=== PATIENT | female | born 1970 | race African-American/Black ===

== ENCOUNTER 2021-04-16 06:04 | Inpatient (IN) ==
[2021-04-08 12:08] LABS: Basophils % 0.3 % (0.0-0.8); Eosinophils # 0.1 10*3/uL (0.0-0.87); Eosinophils % 1.3 % (0.00-10.9); Hematocrit 42.1 VOL% (35.7-47.0); Hemoglobin 13.7 GM/DL (12.0-16.0); Immature Granulocytes % 0.3 %; Immature Granulocytes Absolute 0.03 #; Lymphocytes # 1.9 10*3/uL (1.4-4.0); Lymphocytes % 20.3 % (21.3-54.2); Mean Corpuscular HGB Conc 32.5 GM/DL (32-36); Mean Corpuscular Volume 82.2 FL (87-102); Mean Platelet Volume 9.9 FL (9.6-12.0); Monocytes % 4.9 % (1.7-12.7); Neutrophils % 72.9 % (38.7-73.9); Platelet Count 252 T/CUMM (130-400); Red Blood Count 5.12 MC/CUMM (3.8-5.5); White Blood Count 9.2 T/CUMM (4-12)
[2021-04-08 12:30] LABS: Alanine Aminotransferase 20 U/L (13-56); Albumin 3.8 G/DL (3.4-5.0); Alkaline Phosphatase 83 U/L (45-117); Aspartate Amino Transferase 14 U/L (0-37); Bilirubin,Total < 0.39 MG/DL (0.20-1.00); Blood Urea Nitrogen 17 MG/DL (7-18); Calcium 9.5 MG/DL (8.5-10.1); Carbon Dioxide 26 MMOL/L (21-32); Estimated Glom Filtration Rate 125 ML/MIN; Glucose 101 MG/DL (74-106); Osmolality,Calculated 282.3 MOS/KG (273-304); Potassium 3.8 MMOL/L (3.5-5.1); Sodium 141 MMOL/L (136-145); Total Protein 7.5 G/DL (6.4-8.2)
[~2021-04-16 06:04] MED LIST: ACETAMINOPHEN 500 MG TABLET PO ONE; DIAZEPAM 5 MG TABLET PO ONE; FAMOTIDINE 20 MG TABLET PO ONE; GABAPENTIN 400 MG CAPSULE PO ONE; LACTATED RINGERS 1,000 ML IV SCH
[2021-04-16] MEDS ORDERED: DEXMEDETOMIDINE 200 MCG/2 ML VIAL ONE (06:26)
[2021-04-16] MEDS ORDERED: LIDOCAINE 2% 5 ML VIAL ONE (06:26)
[2021-04-16] MEDS ORDERED: ROCURONIUM 50 MG/5 ML VIAL IV ONE (06:26)
[2021-04-16] MEDS ORDERED: propofoL 200 MG/20 ML VIAL IV ONE (06:26)
[2021-04-16] MEDS ORDERED: KETAMINE 500 MG/10 ML VIAL ONE (06:27)
[2021-04-16] MEDS ORDERED: fentaNYL 100 MCG/2 ML VIAL ONE (06:27)
[2021-04-16] MEDS ORDERED: cefTRIAXone 1,000 MG in SODIUM CHLORIDE 0.9% 100 ML IV ONE (06:30)
[2021-04-16] MEDS ORDERED: PHENYLEPHRINE 10 MG/1 ML VIAL IV ONE (06:31)
[2021-04-16] MEDS ORDERED: ALBUMIN 5% 25.0 GM/500 ML VIAL IV ONE (06:34)
[2021-04-16] MEDS ORDERED: MANNITOL 12.5 GM/50 ML VIAL IV ONE (06:34)
[2021-04-16] MEDS ORDERED: BUPIVACAINE 0.5% 50 ML VIAL ONE (06:40)
[2021-04-16] MEDS ORDERED: INDOCYANINE GREEN 25 MG VIAL IV ONE (06:41)
[2021-04-16] MEDS ORDERED: DEXAMETHASONE 4 MG/1 ML VIAL ONE (06:42)
[2021-04-16] MEDS ORDERED: DIAZEPAM 5 MG TABLET ONE (06:54)
[2021-04-16] MEDS ORDERED: ACETAMINOPHEN 500 MG TABLET ONE (06:54)
[2021-04-16] MEDS ORDERED: FAMOTIDINE 20 MG TABLET ONE (06:54)
[2021-04-16] MEDS ORDERED: GABAPENTIN 400 MG CAPSULE ONE (06:55)
[2021-04-16] MEDS ORDERED: METOCLOPRAMIDE 10 MG/2 ML VIAL ONE (07:05)
[2021-04-16] MEDS ORDERED: VECURONIUM 10 MG VIAL IV ONE (09:03)
[2021-04-16] MEDS ORDERED: GLYCOPYRROLATE 0.4 MG/2 ML VIAL ONE (09:44)
[2021-04-16] MEDS ORDERED: ONDANSETRON 4 MG/2 ML VIAL ONE (09:44)
[2021-04-16] MEDS ORDERED: NEOSTIGMINE 10 MG/10 ML VIAL ONE (09:44)
[2021-04-16] MEDS ORDERED: SEVOFLURANE 1 UNIT/15 MINUTE INH ONE (10:30)
[2021-04-16 10:38] LABS: Bilirubin,Urine Negative (Negative); Blood, Urine Negative (Negative); Glucose,Urine (UA) Negative (Negative); Ketones,Urine Negative (Negative); Mucus,Urine Occasional /LPF (Occasional); Nitrite,Urine Negative (Negative); Protein,Urine Negative; RBC,Urine 5 /HPF (0-4); Squamous Epithelial Cell,Urine Occasional /HPF (0-10); Urine Appearance CLEAR (Clear); Urine Color Yellow (Yellow); Urine Specific Gravity 1.025 (1.001-1.035)
[2021-04-16] MEDS ORDERED: LACTULOSE 20 GM/30 ML UDCUP PO PRN (10:42)
[2021-04-16] MEDS ORDERED: ONDANSETRON 4 MG/2 ML VIAL IV PRN (10:42)
[2021-04-16] MEDS ORDERED: PROMETHAZINE 25 MG/1 ML VIAL IM PRN (10:42)
[2021-04-16] MEDS ORDERED: ACETAMINOPHEN 325 MG TABLET PO PRN (10:42)
[2021-04-16] MEDS ORDERED: HYDROmorphone 2 MG/1 ML VIAL IV PRN (10:42)
[2021-04-16] MEDS ORDERED: oxyCODONE/ACETAMINOPHEN 5-325 MG TABLET PO PRN (10:42)
[2021-04-16] MEDS ORDERED: GLUCAGON 1 MG VIAL IM PRN ×2 (10:46→17:08)
[2021-04-16] MEDS ORDERED: DEXTROSE 50% 25 GM/50 ML VIAL IV PRN ×2 (10:46→17:08)
[2021-04-16] MEDS ORDERED: SUGAMMADEX 200 MG/2 ML VIAL IV ONE (10:55)
[2021-04-16] MEDS ORDERED: NALOXONE 0.4 MG/ML VIAL ONE (11:13)
[2021-04-16] MEDS ORDERED: ALBUTEROL/IPRATROPIUM 3 ML NEB RESP TX ONE ×2 (12:06→12:10)
[2021-04-16] MEDS: INSULIN REGULAR 100 UNIT/ML SUBCUT SCH ×3 (13:32→21:12)
[2021-04-16] MEDS: ACETAMINOPHEN 325 MG TABLET PO SCH ×2 (13:33→18:13)
[2021-04-16] MEDS ORDERED: SIMETHICONE CHEW 80 MG TABLET PO PRN (14:07)
[2021-04-16 14:09] LABS: Basophils % 0.1 % (0.0-0.8); Hematocrit 37.1 VOL% (35.7-47.0); Hemoglobin 11.5 GM/DL (12.0-16.0); Immature Granulocytes % 0.8 %; Immature Granulocytes Absolute 0.15 #; Lymphocytes # 0.6 10*3/uL (1.4-4.0); Lymphocytes % 3.4 % (21.3-54.2); Mean Corpuscular Volume 85.7 FL (87-102); Monocytes % 0.8 % (1.7-12.7); Neutrophils % 94.9 % (38.7-73.9); Platelet Count 225 T/CUMM (130-400); Red Blood Count 4.33 MC/CUMM (3.8-5.5); Red Cell Distribution Width 15.3 % (9.3-17.3); White Blood Count 17.8 T/CUMM (4-12)
[2021-04-16 14:25] LABS: Calcium 8.5 MG/DL (8.5-10.1); Osmolality,Calculated 280.7 MOS/KG (273-304); Potassium 3.3 MMOL/L (3.5-5.1)
[2021-04-16] MEDS: SODIUM CHLORIDE 0.9% 1,000 ML IV SCH ×2 (14:51→21:21)
[2021-04-16 14:57] LABS: Lymphocytes 1 % (20-55); Segmented Neutrophils 99 % (50-85); Total Cells Counted 100
[2021-04-16 14:59] LABS: Anisocytosis Slight; Microcytosis Slight; Ovalocytes Few
[2021-04-16] MEDS ORDERED: POTASSIUM CHLORIDE 20 MEQ TABLET PO ONE (15:00)
[2021-04-16] MEDS: GABAPENTIN 300 MG CAPSULE PO SCH ×2 (15:52→21:11)
[2021-04-16] MEDS: ALBUTEROL/IPRATROPIUM 3 ML NEB RESP TX SCH (19:53)
[2021-04-16] MEDS: DOCUSATE SODIUM 100 MG CAPSULE PO SCH (21:11)
[2021-04-16] MEDS: AMITRIPTYLINE 10 MG TABLET PO SCH (21:11)
[2021-04-16] MEDS: ALVIMOPAN 12 MG CAPSULE PO SCH (21:11)
[2021-04-16] MEDS: FLUTICASONE 50 MCG NASAL SPRAY 16 GM BOTTLE BOTH NARES SCH (21:18)
[2021-04-17] MEDS: ALBUTEROL/IPRATROPIUM 3 ML NEB RESP TX SCH ×4 (00:52→19:23)
[2021-04-17] MEDS: ACETAMINOPHEN 325 MG TABLET PO SCH ×4 (01:23→18:06)
[2021-04-17] MEDS: SODIUM CHLORIDE 0.9% 1,000 ML IV SCH ×3 (04:05→21:02)
[2021-04-17 04:44] LABS: Basophils % 0.1 % (0.0-0.8); Hematocrit 34.4 VOL% (35.7-47.0); Hemoglobin 10.8 GM/DL (12.0-16.0); Immature Granulocytes % 0.5 %; Immature Granulocytes Absolute 0.09 #; Lymphocytes # 1.5 10*3/uL (1.4-4.0); Lymphocytes % 8.9 % (21.3-54.2); Mean Corpuscular HGB Conc 31.4 GM/DL (32-36); Mean Corpuscular Volume 83.5 FL (87-102); Mean Platelet Volume 10.1 FL (9.6-12.0); Monocytes % 6.3 % (1.7-12.7); Neutrophils % 84.2 % (38.7-73.9); Platelet Count 229 T/CUMM (130-400); Red Blood Count 4.12 MC/CUMM (3.8-5.5); Red Cell Distribution Width 15.2 % (9.3-17.3); White Blood Count 17.4 T/CUMM (4-12)
[2021-04-17 05:05] LABS: Osmolality,Calculated 285.5 MOS/KG (273-304); Potassium 4.5 MMOL/L (3.5-5.1)
[2021-04-17 05:07] LABS: Risk Ratio 3.43; VLDL Cholesterol 11.2 MG/DL
[2021-04-17] MEDS: INSULIN REGULAR 100 UNIT/ML SUBCUT SCH ×4 (09:14→21:03)
[2021-04-17] MEDS: GABAPENTIN 300 MG CAPSULE PO SCH ×3 (09:14→21:01)
[2021-04-17] MEDS: ALVIMOPAN 12 MG CAPSULE PO SCH ×2 (09:14→21:01)
[2021-04-17] MEDS: DOCUSATE SODIUM 100 MG CAPSULE PO SCH ×2 (09:14→21:00)
[2021-04-17] MEDS: amLODIPine 10 MG TABLET PO SCH (09:14)
[2021-04-17] MEDS: POLYETHYLENE GLYCOL POWDER 17 GM PACK PO SCH (09:15)
[2021-04-17] MEDS: FLUTICASONE 50 MCG NASAL SPRAY 16 GM BOTTLE BOTH NARES SCH ×2 (09:15→21:02)
[2021-04-17] MEDS: PANTOPRAZOLE 40 MG TABLET PO SCH (09:15)
[2021-04-17] MEDS: INSULIN GLARGINE 100 UNIT/ML SUBCUT SCH (11:30)
[2021-04-17] MEDS ORDERED: AZITHROMYCIN 250 MG TABLET PO ONE (11:30)
[2021-04-17] MEDS: cefTRIAXone 1,000 MG in SODIUM CHLORIDE 0.9% 100 ML IV SCH (11:38)
[2021-04-17] MEDS: AMITRIPTYLINE 10 MG TABLET PO SCH (21:04)
[2021-04-18] MEDS: ACETAMINOPHEN 325 MG TABLET PO SCH ×3 (00:10→11:53)
[2021-04-18] MEDS: ALBUTEROL/IPRATROPIUM 3 ML NEB RESP TX SCH ×3 (01:45→13:43)
[2021-04-18 05:37] LABS: Basophils % 0.3 % (0.0-0.8); Eosinophils % 0.1 % (0.00-10.9); Hematocrit 33.5 VOL% (35.7-47.0); Hemoglobin 10.5 GM/DL (12.0-16.0); Immature Granulocytes % 0.3 %; Immature Granulocytes Absolute 0.03 #; Lymphocytes % 16.5 % (21.3-54.2); Mean Corpuscular HGB Conc 31.3 GM/DL (32-36); Mean Corpuscular Volume 84.4 FL (87-102); Mean Platelet Volume 10.5 FL (9.6-12.0); Monocytes % 7.8 % (1.7-12.7); Platelet Count 217 T/CUMM (130-400); Red Blood Count 3.97 MC/CUMM (3.8-5.5); Red Cell Distribution Width 15.5 % (9.3-17.3); White Blood Count 11.9 T/CUMM (4-12)
[2021-04-18 06:12] LABS: Calcium 8.2 MG/DL (8.5-10.1)
[2021-04-18] MEDS ORDERED: AZITHROMYCIN 250 MG TABLET PO SCH (09:00)
[2021-04-18] MEDS: INSULIN REGULAR 100 UNIT/ML SUBCUT SCH ×2 (09:45→11:54)
[2021-04-18] MEDS: ALVIMOPAN 12 MG CAPSULE PO SCH (09:46)
[2021-04-18] MEDS: DOCUSATE SODIUM 100 MG CAPSULE PO SCH (09:46)
[2021-04-18] MEDS: GABAPENTIN 300 MG CAPSULE PO SCH (09:46)
[2021-04-18] MEDS: PANTOPRAZOLE 40 MG TABLET PO SCH (09:46)
[2021-04-18] MEDS: INSULIN GLARGINE 100 UNIT/ML SUBCUT SCH (09:46)
[2021-04-18] MEDS: POLYETHYLENE GLYCOL POWDER 17 GM PACK PO SCH (09:46)
[2021-04-18] MEDS: amLODIPine 10 MG TABLET PO SCH (09:46)
[2021-04-18] MEDS: FLUTICASONE 50 MCG NASAL SPRAY 16 GM BOTTLE BOTH NARES SCH (09:47)
[2021-04-18 11:48] VITALS: BP 133/74
[2021-04-18] MEDS: cefTRIAXone 1,000 MG in SODIUM CHLORIDE 0.9% 100 ML IV SCH (11:53)
== END 2021-04-18 15:35 | disposition home or self-care (01) | DRG 656 ==
LOC: N.OR 06:04 → N.SDSINP 06:06 → N.3E 13:30
PROVIDERS: ADMIT Surgery; ATTEND Surgery